=== PATIENT | female | born 1940 | race Caucasian/White ===

== ENCOUNTER 2024-08-11 11:49 | Emergency (ER) | payer MEDICARE, SELFPAY ==
[2024-08-11 11:51] VITALS: BP 122/67
[2024-08-11 12:27] LABS: % Basophils 0.8 % (0-2); % Eosinophils 3.3 % (0-6); % Immature Granulocytes 0.2 % (0-0.5); % Lymphocytes 29.2 % (20.5-51.1); % Neutrophils 57.5 % (42.2-75.2); Absolute Eosinophils 0.2 10^3/uL (0-0.7); Absolute Lymphocytes 1.4 10^3/uL (1.2-3.4); Absolute Monocytes 0.4 10^3/uL (0.1-0.6); Absolute Neutrophils 2.8 10^3/uL (1.4-6.5); Hematocrit 40.4 % (37.0-47.0); Hemoglobin 13.5 g/dL (12.0-16.0); Mean Corp Hgb Conc. 33.4 g/dL (33.0-37.0); Mean Corpuscular Hgb 28.4 pg (27.0-31.0); Mean Corpuscular Volume 85.1 fL (81.0-99.0); Mean Platelet Volume 9.2 fL (7.4-10.4); Nucleated Red Blood Cells % 0 %; Platelet Count 241 10^3/uL (130-400); Red Blood Cell Count 4.75 10^6/uL (4.20-5.40); Red Cell Dist. Width 17.1 % (11.5-14.5); White Blood Cell Count 4.8 10^3/uL (4.8-10.8)
[2024-08-11 12:45] LABS: ALT (SGPT) 22 U/L (0-35); AST (SGOT) 20 U/L (14-36); Albumin 4.2 g/dl (3.5-5.0); Alkaline Phosphatase 58 U/L (38-126); Blood Urea Nitrogen 10 mg/dl (7-17); Calcium 9.4 mg/dl (8.4-10.2); Carbon Dioxide 29 mmol/L (22-30); Chloride 97 mmol/L (98-107); Glucose 110 mg/dl (70-99); Potassium 3.9 mmol/L (3.5-5.1); Sodium 134 mmol/L (135-145); Total Bilirubin 0.6 mg/dl (0.2-1.3); Total Protein 6.4 g/dl (6.3-8.2); eGFR > 60.00
[2024-08-11 12:50] VITALS: BMI 21.8
[2024-08-11 12:54] VITALS: BP 127/76
[2024-08-11 13:00] VITALS: BP 101/59
[2024-08-11 13:19] LABS: TSH Reflex To Free T4 0.39 uIU/ml (0.47-4.68)
[2024-08-11 13:48] LABS: Free T4 1.29 ng/dl (0.78-2.19)
[2024-08-11 14:00] VITALS: BP 141/57
[2024-08-11 15:00] VITALS: BP 155/59
--- NOTE | 2024-08-11 15:00 | ED.GENMED ---
History of Present Illness
General
Chief Complaint: Heart Rate Problem
Time Seen by Provider: 08/11/24 12:38
History of Present Illness
History of Present Illness:
84 presents to the emergency department for valuation of palpitations that woke her up from sleep this morning. The left 3 approximately 1 hour before resolving. She called 911 but states the symptoms had resolved upon arrival of EMS. She was
encouraged to come to the emergency department however declined. After discussing her symptoms with her daughter they opted to come to the emergency department today. Her reinforced concrete inspector is at [facility]. Denies any current symptoms,
specifically denies chest pain or shortness of breath
Past History
Past History
ED Past Medical History: Arrthythmia
ED Past Surgical History: None
Review of Systems
Review of Systems
Allergies reviewed?: Yes
All Other Systems: ROS reviewed and negative except as documented in HPI and ROS
Phy Exam
Physical Exam
Physical Exam:
GEN: Well appearing, NAD, WDWN
HEENT: Oral mucosa moist, no scleral icterus
Cardiac: Regular rate and rhythm, no murmurs
Lung: No respiratory distress, no tachypnea, lungs clear to auscultation bilaterally
MSK: No gross deformity or injuries
Skin: Good color, no pallor or jaundice, no rashes
Neuro: AO x3, moves all extremities freely
Psych: Calm, cooperative
Course
Orders/Labs/Results
Orders:
Orders
08/11/24 11:51
Electrocardiogram (*1) Urgent
Reason for Study: Bradycardia / Tachycardia
EKG- Treatment ONCE
08/11/24 11:56
EKG- Treatment ONCE
08/11/24 12:05
Complete Blood Count/With Diff Urgent
Comprehensive Metabolic Panel Urgent
Free T4 Urgent
TSH Reflex To Free T4 Urgent
Abnormal Lab Results
08/11/24
12:05
RDW 17.1 H %
(11.5-14.5)
Sodium 134 L mmol/L
(135-145)
Chloride 97 L mmol/L
(98-107)
Glucose 110 H mg/dl
(70-99)
TSH (Reflex) 0.39 L uIU/ml
(0.47-4.68)
08/11/24 12:05
08/11/24 12:05
Vital Signs
Initial and Last Documented VS:
Initial Vital Signs
Temp Pulse Resp BP Pulse Ox
98.3 F 70 16 122/67 97
08/11/24 11:51 08/11/24 11:51 08/11/24 11:51 08/11/24 11:51 08/11/24 11:51
Last Documented Vital Signs
Temp Pulse Resp BP Pulse Ox
98.5 F 60 14 155/59 99
08/11/24 12:54 08/11/24 15:00 08/11/24 15:00 08/11/24 15:00 08/11/24 14:45
MDM/Problems Addressed
MDM/Problems Addressed:
EKG is reassuring, telemetry monitoring shows no evidence of cardiac dysrhythmia. Patient does have a distant history of paroxysmal A-fib so this very well could have been the ultimate cause. I have encouraged her to follow-up with her
reinforced concrete inspector as an outpatient discussed with her evaluation
*Critical Care Note
Total Time (30-74mins, 75-104mins- exclusive of procedures): Not Applicable
ED Attending Note
-
Portions of this chart may have been created with voice recognition software.� Occasional wrong word or��sound alike� substitutions may have occurred due to the inherent limitations of voice recognition software.
Discharge Plan
Departure
Patient Disposition: Home (Routine Discharge)
Date of Disposition: 08/11/24
Time of Disposition: 15:00
Patient with high blood pressure during this ER visit?: No
Discharge Problem:
Heart palpitations
Instructions: Palpitations (DC)
Prescriptions:
No Action
sertraline 100 MG tablet
50 mg PO DAILY
aspirin [Adult Low Dose Aspirin] 81 MG tablet,delayed release (DR/EC)
81 mg PO DAILY
metoprolol succinate [Toprol XL] 25 MG tablet extended release 24 hr
50 mg PO BID
zolpidem 10 MG tablet
10 mg PO DAILY
acetaminophen [Tylenol] 325 MG capsule
1,000 mg PO BID
vitamin A 2,400 mcg Capsule
2,400 mcg PO DAILY
magnesium 500 mg Tablet
15 mg PO DAILY
cholecalciferol (vitamin D3) [Vitamin D3] 25 mcg (1,000 unit) Capsule
25 mcg PO DAILY
B-complex with vitamin C Tablet
1 tab PO DAILY
omega-3 fatty acids Capsule
1,000 mg PO DAILY
melatonin 5 mg Tablet
5 mg PO HS PRN (Reason: sleep)
coQ10 (ubiquinol) 100 mg Capsule
200 mg PO DAILY
Women's 50 Plus Multivitamin 400 mcg-500 mg calcium-20 mcg Tablet
400 tab PO DAILY
fluticasone furoate-vilanterol [Breo Ellipta] 100-25 mcg/dose Blister With Device
1 inh INHALATION DAILY
biotin 1 mg Capsule
1 mg PO DAILY
mecobalamin (vitamin B12) [B12 Active] 1,000 mcg Tablet,Chewable
1,000 mcg PO DAILY
Glucosamine Chondroitin 550-30-1 mg Capsule
1 cap PO DAILY
vitamin E
1 cap PO DAILY
pantoprazole [pantoprazole] 40 mg tablet,delayed release (DR/EC)
40 mg PO DAILY Qty: 90 3RF
Referrals:
Zachary Padron DO [Family Provider] -
Interventions
Interventions:
*Risk Screen - Suicide Last Done: 08/11/24 12:54
*General Assessment Last Done: 08/11/24 12:54
*Neglect/Abuse Screening Last Done: 08/11/24 12:54
ED- Fall Risk Assessment Last Done: 08/11/24 12:54
*ED COVID-19 Vaccine History Last Done: 08/11/24 12:54
*Nursing Disposition Last Done: 08/11/24 15:06
ED- Cardiac Assessment Last Done: 08/11/24 12:54
ED- Pulmonary Assessment Last Done: 08/11/24 12:54
Discharge Date and Time
Discharge Date/Time: 08/11/24 15:07
Print Language: GREEK
== END 2024-08-11 15:07 | disposition home or self-care (01) ==
LOC: EMR 11:49
PROVIDERS: Emergency Medicine; EMERGENCY PHYSICIAN Emergency Medicine; FAMILY PHYSICIAN Pediatrics
DX: R00.2 Palpitations (principal)
CPT/HCPCS: 99284; 80053; 84439; 84443; 85025; 93005

== ENCOUNTER 2024-08-21 14:08 | Emergency (ER) | payer MEDICARE, SELFPAY ==
[2024-08-21 14:13] VITALS: BP 147/76
[2024-08-21 14:44] LABS: % Basophils 0.3 % (0-2); % Eosinophils 2.7 % (0-6); % Immature Granulocytes 0.3 % (0-0.5); % Lymphocytes 21.7 % (20.5-51.1); % Monocytes 7.3 % (1.7-9.3); % Neutrophils 67.7 % (42.2-75.2); Absolute Eosinophils 0.2 10^3/uL (0-0.7); Absolute Lymphocytes 1.5 10^3/uL (1.2-3.4); Absolute Monocytes 0.5 10^3/uL (0.1-0.6); Absolute Neutrophils 4.8 10^3/uL (1.4-6.5); Hematocrit 40.1 % (37.0-47.0); Hemoglobin 13.3 g/dL (12.0-16.0); Mean Corp Hgb Conc. 33.2 g/dL (33.0-37.0); Mean Corpuscular Hgb 28.1 pg (27.0-31.0); Mean Corpuscular Volume 84.6 fL (81.0-99.0); Mean Platelet Volume 9.1 fL (7.4-10.4); Nucleated Red Blood Cells % 0 %; Platelet Count 252 10^3/uL (130-400); Red Blood Cell Count 4.74 10^6/uL (4.20-5.40); Red Cell Dist. Width 17.7 % (11.5-14.5); White Blood Cell Count 7.1 10^3/uL (4.8-10.8)
[2024-08-21 14:59] LABS: ALT (SGPT) 21 U/L (0-35); AST (SGOT) 21 U/L (14-36); Albumin 4.1 g/dl (3.5-5.0); Alkaline Phosphatase 56 U/L (38-126); Blood Urea Nitrogen 15 mg/dl (7-17); Calcium 9.8 mg/dl (8.4-10.2); Carbon Dioxide 28 mmol/L (22-30); Chloride 99 mmol/L (98-107); Glucose 93 mg/dl (70-99); Potassium 4.2 mmol/L (3.5-5.1); Sodium 134 mmol/L (135-145); Total Bilirubin 0.4 mg/dl (0.2-1.3); Total Protein 6.4 g/dl (6.3-8.2); eGFR > 60.00
[2024-08-21 16:24] LABS: TSH Reflex To Free T4 0.58 uIU/ml (0.47-4.68)
--- NOTE | 2024-08-21 16:25 | ED.GENMED ---
History of Present Illness
General
Chief Complaint: Weakness
Time Seen by Provider: 08/21/24 16:22
History of Present Illness
History of Present Illness:
84-year-old female with history of dementia presenting to the emergency department for generalized body weakness. Patient reports that she has been feeling weak for the past year. She was seen in the hospital few weeks ago for palpitations, at
which time she was told to follow-up with a immersion metal cleaner. She has a cardiology appointment tomorrow. Since coming to the hospital on 08/11, she discontinued all her medications including her donepezil and Risperdal. She thought that her
medications could be contributing to palpitations. She has not had any palpitations since discontinuing her medications, however notes that every morning she wakes up feeling very weak and does not get energy until the afternoon. She also reports
hearing and visual issues and 'feels like a prisoner in her apartment '. She is unsure whether or not she is suffering from depression. Denies any fall. Denies fever, cough, abdominal pain. Denies urinary complaints. She has an aide that comes
to the house twice a week. Daughter at bedside
Past History
Past History
ED Past Medical History: Arrthythmia
ED Past Surgical History: None
Phy Exam
Physical Exam
Physical Exam:
General: Well-appearing, no clinical signs of dehydration, nontoxic and in no acute distress
HEENT: protecting airway, pupils equal and reactive
Neck: appears supple
CV: Normal heart rate, regular rhythm, no evidence of cyanosis
Resp: No accessory muscle use, no increased work of breathing, lungs clear to auscultation bilaterally
Abd: Soft and non-distended, no tenderness to palpation
Extremities: No deformities, no swelling, no erythema
Neuro: alert, no focal neurologic deficit
: deferred
Rectal: deferred
Psych: Normal affect
Skin: Intact
Course
Orders/Labs/Results
Orders:
Orders
08/21/24 14:19
Electrocardiogram (*1) Urgent
Reason for Study: Fatigue / Weakness
08/21/24 14:20
EKG- Treatment ONCE
08/21/24 14:35
Complete Blood Count/With Diff Urgent
Comprehensive Metabolic Panel Urgent
TSH Reflex To Free T4 Urgent
08/21/24 17:18
CT Head W/o Iv Contrast Urgent
Comment:
Reason For Exam: general weakness
08/21/24 17:45
Urinalysis Reflex To Culture Urgent
Date Specimen was Collected: 08/21/24
Time Specimen was Collected: 17:39
Urine Microscopic Reflex Cult Urgent
Urine Culture Urgent
PAMELA Source: U
Specimen Description:
Date Specimen was Collected: 08/21/24
Time Specimen was Collected: 17:39
08/21/24 19:45
Cephalexin Monohydrate [Keflex] 500 mg PO NOW STA
Abnormal Lab Results
08/21/24 08/21/24
14:35 17:45
RDW 17.7 H %
(11.5-14.5)
Sodium 134 L mmol/L
(135-145)
Leukocyte Esterase Rfl 1+ A
(Negative)
Urine Bacteria (Reflex) Moderate A
(Negative)
08/21/24 14:35
08/21/24 14:35
Vital Signs
Initial and Last Documented VS:
Initial Vital Signs
Temp Pulse Resp BP Pulse Ox
98.5 F 87 20 147/76 99
08/21/24 14:13 08/21/24 14:13 08/21/24 14:13 08/21/24 14:13 08/21/24 14:13
Last Documented Vital Signs
Temp Pulse Resp BP Pulse Ox
97.9 F 73 14 147/63 98
08/21/24 19:32 08/21/24 19:15 08/21/24 19:15 08/21/24 19:00 08/21/24 19:15
MDM/Problems Addressed
MDM/Problems Addressed:
84-year-old female with history of reported dementia presenting for generalized weakness. Vitals are normal.
On exam patient is resting comfortably, no acute distress or discomfort. Unremarkable cardiac and pulmonary exam. No focal neurologic deficits. Patient is moving all extremities equally. She does appear very anxious. Patient mentions if her
symptoms could be secondary to depression, which I do think is contributing. Reports recent diagnosis of dementia, also has been having issues with hearing and seeing, so has been feeling trapped in her apartment. Patient had screening laboratory
analysis here, unremarkable, normal TSH. Will additionally add a urine and CT brain imaging to ensure no additional acute cause to her generalized weakness. Will also plan to ambulate to ensure stability. However at this time do not suspect acute
medical cause to her generalized weakness
19:40 -urine does show some subtle sign of infection, so in the setting of generalized weakness, will treat with an antibiotic. CT of the brain is negative. Patient ambulated to the bathroom without difficulty or assistance. At this time no
indication for physical therapy or rehab. Feel stable for discharge, however communicated to patient and daughter at bedside that they should call the aide service for potential increase of hours. Patient has a cardiology appointment tomorrow,
advised maintaining this appointment. Also advised discussing with her psychiatrist given her recent discontinuation of her medications and suspected component of anxiety and depression. Return precautions discussed and patient verbalized
understanding
*EKG
Interpreted by ED Provider?: Yes
EKG Intrepretation Date: 08/21/24
EKG Intrepretation Time: 17:30
Interpretation: normal
Comparison EKG: no changes (08/11/24)
Heart Rate: 70
Rate: normal
Rhythm: sinus
Mio: normal axis
Interval: normal interval
QRS Pattern: left vent hypertrophy and other (left anterior fascicular block)
Ischemia: no ischemia
*Critical Care Note
Total Time (30-74mins, 75-104mins- exclusive of procedures): Not Applicable
ED Attending Note
-
Portions of this chart may have been created with voice recognition software.� Occasional wrong word or��sound alike� substitutions may have occurred due to the inherent limitations of voice recognition software.
Discharge Plan
Departure
Patient Disposition: Admit
Date of Disposition: 08/21/24
Time of Disposition: 19:43
Presentation/result/management discussed w/ accepting MD/DO: Hospitalist
Patient with high blood pressure during this ER visit?: No
Condition: Good
Discharge Problem:
Generalized weakness, Urinary tract infection
Instructions: Generalized Weakness (DC), Urinary tract infection in adults - ED discharge instructions
Prescriptions:
New
cephalexin 500 mg capsule
500 mg PO Q12H 7 Days Qty: 14 0RF
No Action
sertraline 100 MG tablet
50 mg PO DAILY
aspirin [Adult Low Dose Aspirin] 81 MG tablet,delayed release (DR/EC)
81 mg PO DAILY
metoprolol succinate [Toprol XL] 25 MG tablet extended release 24 hr
50 mg PO BID
zolpidem 10 MG tablet
10 mg PO DAILY
acetaminophen [Tylenol] 325 MG capsule
1,000 mg PO BID
vitamin A 2,400 mcg Capsule
2,400 mcg PO DAILY
magnesium 500 mg Tablet
15 mg PO DAILY
cholecalciferol (vitamin D3) [Vitamin D3] 25 mcg (1,000 unit) Capsule
25 mcg PO DAILY
B-complex with vitamin C Tablet
1 tab PO DAILY
omega-3 fatty acids Capsule
1,000 mg PO DAILY
melatonin 5 mg Tablet
5 mg PO HS PRN (Reason: sleep)
coQ10 (ubiquinol) 100 mg Capsule
200 mg PO DAILY
Women's 50 Plus Multivitamin 400 mcg-500 mg calcium-20 mcg Tablet
400 tab PO DAILY
fluticasone furoate-vilanterol [Breo Ellipta] 100-25 mcg/dose Blister With Device
1 inh INHALATION DAILY
biotin 1 mg Capsule
1 mg PO DAILY
mecobalamin (vitamin B12) [B12 Active] 1,000 mcg Tablet,Chewable
1,000 mcg PO DAILY
Glucosamine Chondroitin 550-30-1 mg Capsule
1 cap PO DAILY
vitamin E
1 cap PO DAILY
pantoprazole [pantoprazole] 40 mg tablet,delayed release (DR/EC)
40 mg PO DAILY Qty: 90 3RF
Referrals:
Link Pena DO [Family Provider] -
Activity Restrictions/Additional Instructions:
You were seen in the emergency department for generalized weakness
You were found to have normal EKG, laboratory analysis, CT imaging of your brain. Your urine did show some bacteria so you were started on an antibiotic for potential urinary tract infection. Please follow-up as scheduled with your immersion metal cleaner
tomorrow and please make an appointment with your psychiatrist regarding your medications.
Please follow-up closely with your primary care physician.
Return to the emergency department for any worsening of your symptoms, or any development of chest pain, difficulty breathing, abdominal pain with persistent vomiting and inability to tolerate food or liquid by mouth (concern for dehydration),
weakness, headache or confusion, fever greater than 100.4, or any additional symptoms that are concerning to you.
Thank you for choosing [facility].
Interventions
Interventions:
*Risk Screen - Suicide Last Done: 08/21/24 14:13
*ED- Fall Risk Assessment Last Done: 08/21/24 19:37
ED- Cardiac Assessment Last Done: 08/21/24 17:51
ED- Neurological Assessment Last Done: 08/21/24 19:33
ED- Pulmonary Assessment Last Done: 08/21/24 17:52
Discharge Date and Time
Print Language: POLISH
[2024-08-21 18:00] LABS: Urine Albumin Negative (Neg - Trace); Urine Bilirubin Negative (Negative); Urine Character Clear (Clear); Urine Color Yellow; Urine Glucose Negative (Negative); Urine Ketone Negative (Negative); Urine Leukocyte 1+ (Negative); Urine Nitrite Negative (Negative); Urine Occult Blood Negative (Negative); Urine Specific Gravity 1.015 (<1.030); Urine Urobilinogen Negative (Neg - 1+)
[2024-08-21 18:10] LABS: Urine Squamous Cell 0-2 /LPF (Few)
[2024-08-21 18:11] LABS: Urine Bacteria Moderate (Negative); Urine Red Blood Cell 0-2 /HPF (0-2)
[2024-08-21 18:20] VITALS: BP 137/74
[2024-08-21 18:50] VITALS: BP 143/67
[2024-08-21 19:00] VITALS: BP 147/63
[2024-08-21 20:00] VITALS: BP 156/77
--- NOTE | 2024-08-21 20:36 | PHANOTE ---
Med Rec Tech: patient says that she stopped all rx meds on her own ~ 1 week ago
[2024-08-21] MEDS: KEFLEX 500 MG PO (20:58)
== END 2024-08-21 21:09 | disposition home or self-care (01) ==
LOC: EMR 14:08
PROVIDERS: EMERGENCY PHYSICIAN Student in an Organized Health Care Education/Training Program; FAMILY PHYSICIAN Family Medicine
DX: R53.1 Weakness (principal); N39.0 Urinary tract infection, site not specified; F03.90 Unspecified dementia, unspecified severity, without behavioral disturbance, psychotic disturbance, mood disturbance, and anxiety
CPT/HCPCS: 99284; 70450; 80053; 81003; 81015; 84443; 85025; 87086; 93005